=== PATIENT | female | born 1985 | race African-American/Black ===

== ENCOUNTER 2016-06-27 11:52 | Emergency (ER) | payer OTHER | END 2016-06-27 12:15 | disposition home or self-care (01) | LOC: CED 11:52 | DX: J02.9 Acute pharyngitis, unspecified (principal); I10 Essential (primary) hypertension; F17.200 Nicotine dependence, unspecified, uncomplicated; Z88.1 Allergy status to other antibiotic agents; Z88.6 Allergy status to analgesic agent | CPT/HCPCS: 99282 ==